=== PATIENT | male | born 1950 | race Caucasian/White ===

== ENCOUNTER 2022-01-25 16:26 | Emergency (ER) | payer OTHER ==
[~2022-01-25] VITALS: Ht 180.3 cm; Wt 87.1 kg
[~2022-01-25 16:26] MED LIST: CEPH500 PO
== END 2022-01-25 17:53 | disposition home or self-care (01) ==
LOC: ER 16:26
DX: S51.812A Laceration without foreign body of left forearm, initial encounter (principal); W22.8XXA Striking against or struck by other objects, initial encounter; W11.XXXA Fall on and from ladder, initial encounter; Z79.899 Other long term (current) drug therapy; Z87.891 Personal history of nicotine dependence; Z23 Encounter for immunization
CPT/HCPCS: 12001; 90471; 90714; 99282-25